=== PATIENT | male | born 1935 | race Caucasian/White ===

== ENCOUNTER 2020-10-09 11:20 | Outpatient (CLI) | payer OTHER, MEDICARE ==
--- NOTE | 2020-10-09 16:07 | XRAY Report ---
PROCEDURE: Lumbar Spine 2 View INDICATIONS: LOW BACK PAIN TECHNIQUE: 2 views of the lumbar spine were acquired. COMPARISON: None. FINDINGS: Bones: 5 zrw-bli-cdeayoc vertebrae are present. There is diffuse osteopenia present. Multilevel ret rolisthesis is present. Multilevel moderate to severe disc space narrowing is present. Severe foramin al narrowing is present at L5-S1. Compression deformity is present at L4 of indeterminate age. No zellaem ors are available for comparison. Multilevel osteophytes are present. No vertebral body compression f ractures. No suspicious bony lesions. Soft tissues: Overlying bowel gas pattern is normal. No suspicious soft tissue calcifications. IMPRESSION: 1. Osteopenia and multilevel degenerative change. 2. Compression deformity at L4 of indeterminate age. If concern persists, CT or MRI is recommended. Reviewed by: Megan Nunez MD on 10/09/2020 4:05 PM PDT Approved by: Megan Nunez MD on 10/09/2020 4:05 PM PDT Station ID: [id number]
== END 2020-10-09 11:21 | disposition home or self-care (01) ==
LOC: DI.S 11:20
PROVIDERS: ATTEND Physician Assistant
DX: M85.88 Other specified disorders of bone density and structure, other site (principal); M43.16 Spondylolisthesis, lumbar region; M48.07 Spinal stenosis, lumbosacral region; M25.78 Osteophyte, vertebrae

== ENCOUNTER 2021-03-09 14:02 | Outpatient (CLI) | payer MEDICARE, OTHER | END 2021-03-09 14:03 | disposition critical access hospital (66) | LOC: EMS 14:02 | DX: S80.211A Abrasion, right knee, initial encounter (principal); S00.83XA Contusion of other part of head, initial encounter; M25.511 Pain in right shoulder; W01.0XXA Fall on same level from slipping, tripping and stumbling without subsequent striking against object, initial encounter; Y93.K1 Activity, walking an animal; Y92.199 Unspecified place in other specified residential institution as the place of occurrence of the external cause | CPT/HCPCS: A0425; A0429 ==

== ENCOUNTER 2021-03-09 14:27 | Emergency (ER) | payer MEDICARE, OTHER ==
--- NOTE | 2021-03-09 15:35 | XRAY Report ---
PROCEDURE: Chest 1 View X-Ray INDICATIONS: chest pain TECHNIQUE: One view of the chest was acquired. COMPARISON: None. FINDINGS: Surgical changes and devices: There is a cardiac pacemaker. Sternotomy and CABG. Lungs and pleura: Right hemidiaphragm elevation and bibasilar atelectasis. No pleural effusions or p neumothorax. Mediastinum: Mediastinal contours appear normal. Heart size is mildly increased. Bones and chest wall: No suspicious bony lesions. Overlying soft tissues appear unremarkable. IMPRESSION: 1. Mild cardiomegaly. 2. Right hemidiaphragm elevation. Reviewed by: Lukasz Ulloa MD on 03/09/2021 3:34 PM PST Approved by: Lukasz Ulloa MD on 03/09/2021 3:34 PM PST Station ID: [id number]
--- NOTE | 2021-03-09 15:39 | ED Physician Documentation ---
History of Present Illness - Stated complaint Stated Complaint: GLF - Chief complaint Chief Complaint: Trauma Hd/Nk - Additonal information Additional information: This is a very pleasant 85-year-old male that comes to the ER as a modified t rauma. He was walking his dog and had a ground-level fall. He does reside at an assisted living facility as he has a history of dementia. He is also anticoagulated. He does not think he lost consciousness. He reports that he has some mild pain in his knee and right shoulder. History is somewhat limited given the history of dementia. Review of Systems Constitutional: denies: Fever, Chills Eyes: reports: Reviewed and negative Throat: reports: Reviewed and negative Cardiac: reports: Reviewed and negative Skin: reports: Abrasion (s) Musculoskeletal: reports: Joint pain Neurologic: denies: Syncope, Seizure, Headache, Head injury, LOC PD PAST MEDICAL HISTORY - Past Medical History Past Medical History: Yes Neuro: Alzhiemer's, Dementia, CVA - Past Surgical History Past Surgical History: Yes Cardiovascular: Pacemaker HEENT: Cataracts - Allergies Allergies/Adverse Reactions: Allergies Allergy/AdvReac Type Severity Reaction Status Date / Time lisinopril Allergy Unknown Verified 03/09/21 14:42 - Social History Does the pt smoke?: No Smoking Status: Never smoker Does the pt drink ETOH?: No Does the pt have substance abuse?: No - Immunizations Immunizations are current?: Yes - POLST Patient has POLST: No PD ED PE EXPANDED - General General: Alert, No acute distress, Well developed/nourished - HEENT HEENT: Atraumatic, PERRL, EOMI - Neck Neck: Supple w/out meningeal sx, Soft tissue TTP. No: Adenopathy, Bony TTP, Limited ROM - Cardiac Cardiac: Regular Rate, Radial strong equal, Pedal strong equal, Cap refill < 2 sec - Respiratory Respiratory: Clear to ausultation jason. No: Distress, Labored - Abdomen Abdomen: Normal Bowel sounds. No: Tender to palpation - Back Back: No: Vertebral tenderness, Soft tissue tenderness - Derm Derm: Abrasion (s) (Right knee) - Extremities Extremities: Normal, Tenderness, Right shoulder (Full range of motion of the right shoulder in all planes. Some mild tenderness exhibited posteriorly. No swelling ecchymosis or deformity. Distal radial pulse 2+.), Right knee (Superficial abrasion on the patella of the right knee. Normal flexion extension. No tenderness exhibited medial or lateral joint lines. No laxity. Able to bear weight.). No: Deformity - Neuro Neuro: Confused, CNII-XII intact - GCS Eye Opening: Spontaneous Motor: Obeys Commands Verbal: Confused Total: 14 Results - Vitals Vitals: Vital Signs - 24 hr 03/09/21 14:30 Temperature 33.7 C L Heart Rate 76 Respiratory 21 Rate Blood Pressure 136/82 H O2 Saturation 100 Oxygen O2 Source Room air - Rads (name of study) CXR Radiology: Final report received (Mild cardiomegaly. Right hemidiaphragm elevation.) CT head Radiology: Final report received (No acute intracranial process) Cervical CT Radiology: Final report received (No acute fracture or dislocation) Right shoulder Radiology: Final report received (Slightly displaced acute right distal clavicular fracture. No dislocation. Moderate shoulder joint osteoarthritis) Right knee Radiology: Final report received (No definite acute right knee fracture dislocation. Radiolucency involving the medial peripheral of patella seen on patellar view suggest subcortical cyst versus subtle incomplete fracture) PD MEDICAL DECISION MAKING - ED course Complexity details: reviewed results, re-evaluated patient, considered differential, d/w patient ED course: This is a very pleasant 85-year-old male who has slight dementia presents to the emergency department after a ground-level fall in which he tripped while walking his dog. He is anticoagulated on Xarelto. He did not lose consciousness. He did present as a modified trauma CT of the head and neck are without acute findings. He did report pain in the right shoulder but had a fairly normal shoulder exam as well as full movement of the joint. The x-ray shows a distal mildly displaced clavicular fracture. This finding was discussed with the patient and his daughter. Given that he has very little pain in this area and he moves it well we did not give him a shoulder sling as we do want to prevent a frozen joint. The x-ray of his knees suggests a radiolucency involving the medial periphery of the patella. However he has no pain here and he ambulates without assistance or pain in the knee therefore defer further imaging as my suspicion for a subtle incomplete fracture is felt to be less likely. Patient will be discharged with advised to take Tylenol for discomfort. Follow- up with his primary care provider. Emergent return precautions were otherwise discussed Departure - Departure Disposition: 01 Home, Self Care Clinical Impression: Fall from ground level, Anticoagulated, Abrasion, right knee, initial encounter Closed right clavicular fracture Qualifiers: Encounter type: initial encounter Clavicle location: lateral end Fracture alignment: displaced Qualified Code(s): S42.031A - Displaced fracture of lateral end of right clavicle, initial encounter for closed fracture Condition: Stable Record reviewed to determine appropriate education?: Yes Instructions: ED Fx Clavicle Ch, ED Sprain Knee Follow-Up: ADALID ANGELO PA [Primary Care Provider] - Comments: Tello was seen in the emergency department after ground-level fall this afternoon. The CT of his head and neck showed no broken bones or bleeding. He does have a slightly displaced right clavicle fracture at the joint where it meets the shoulder. However he is moving his shoulder normally. Typically most clavicle fractures are simply monitored and heal over time. We do not want to give him a frozen shoulder therefore we have not given him a sling. I would like him to take ibuprofen 500 mg with food 3-4 times a day for any discomfort. Icing his shoulder may also be helpful. He has an abrasion over his patella. However he is walking normally. The x-ray of his knee suggest that he may have a cyst near the patella. A definitive fracture was not ruled out but given that he is walking so well it is felt to be very unlikely at this time. If at any point over the next few days he has sudden severe headache, uncontro lled vomiting, fevers or chest pain he is to return immediately to the ER for a second evaluation
--- NOTE | 2021-03-09 15:42 | CT Report ---
PROCEDURE: HEAD WO INDICATIONS: GLF TECHNIQUE: Noncontrast 4.5 mm thick angled axial sections acquired from the foramen magnum to the vertex. For r adiation dose reduction, the following was used: automated exposure control, adjustment of mA and/or kV according to patient size. COMPARISON: None. FINDINGS: Image quality: Excellent. CSF spaces: Cavum septum pellucidum. Basal cisterns are patent. No extra-axial fluid collections. Ventricles are normal in size and shape. Brain: No midline shift. No intracranial masses or hemorrhage. Moderate cerebral volume loss and pe riventricular white matter chronic small vessel ischemic changes. Intracranial carotid artery and ve rtebral artery calcifications. Skull and face: Calvarium and visualized facial bones are intact, without suspicious lesions. Sinuses: Visualized sinuses and mastoids are clear. IMPRESSION: No acute intracranial disease. No intracranial bleed. No skull fractures. Reviewed by: Lukasz Ulloa MD on 03/09/2021 3:41 PM PST Approved by: Lukasz Ulloa MD on 03/09/2021 3:41 PM PST Station ID: [id number]
--- NOTE | 2021-03-09 15:44 | XRAY Report ---
PROCEDURE: Shoulder 3 View RT INDICATIONS: pain after fall TECHNIQUE: 3 views of the shoulder were acquired. COMPARISON: None. FINDINGS: Bones: Acute oblique fracture through distal clavicle near acromioclavicular joint is seen with sligh t superior displacement and minimal overlapping of fracture site. No other fracture or dislocation is seen. No suspicious bony lesions. Moderate acromioclavicular joint and glenohumeral joint osteoarthr itic changes are seen. Visualized ribs appear intact. Soft tissues: No suspicious soft tissue calcifications. IMPRESSION: Slightly displaced acute right distal clavicular fracture as above. No dislocation. Mode rate shoulder joint osteoarthritis. Reviewed by: Frank Galvan MD on 03/09/2021 3:43 PM PST Approved by: Frank Galvan MD on 03/09/2021 3:43 PM PST Station ID: [id number]
--- NOTE | 2021-03-09 15:45 | CT Report ---
PROCEDURE: CERVICAL SPINE WO INDICATIONS: GLF TECHNIQUE: Noncontrast 3 mm thick sections acquired from the skull base to the T4 level. Sagittal and coronal r eformats were then constructed. For radiation dose reduction, the following was used: automated exp osure control, adjustment of mA and/or kV according to patient size. COMPARISON: None. FINDINGS: Image quality: Excellent. Bones: No fractures or dislocations. Degenerative disc and facet disease in cervical spine. There i s severe atlantoaxial joint degeneration. Visualized superior ribs are intact. Soft tissues: Prevertebral soft tissues are normal in thickness. No paravertebral hematomas. No ap ical pneumothoraces. Density calcified plaques at the carotid bifurcations bilaterally. IMPRESSION: No cervical spine fracture. Reviewed by: Lukasz Ulloa MD on 03/09/2021 3:44 PM PST Approved by: Lukasz Ulloa MD on 03/09/2021 3:44 PM PST Station ID: [id number]
--- NOTE | 2021-03-09 15:52 | XRAY Report ---
PROCEDURE: Knee 3 View RT INDICATIONS: fall, [pain TECHNIQUE: 3 views of the right knee(s) were acquired. COMPARISON: None. FINDINGS: Bones: No definite acute fractures or dislocations. Radiolucency involving medial periphery of poste rior patella is seen which may represent a subcortical cyst. Incomplete fracture in this area cannot be entirely excluded. No suspicious bony lesions. Mild to moderate tricompartmental osteoarthritis i s seen more prominent in medial femoral tibial compartment. Soft tissues: No joint effusion. No suspicious soft tissue calcifications. IMPRESSION: No definite acute right knee fracture or dislocation. Radiolucency involving medial jamir phery of patella seen on patellar view suggestive of subcortical cyst versus subtle incomplete fractu re in this area. Clinical correlation for focal pain in this region is recommended. No significant estelita int effusion. Mild to moderate tricompartmental osteoarthritis more prominent in medial femoral tibia l compartment. Reviewed by: Frank Galvan MD on 03/09/2021 3:51 PM PST Approved by: Frank Galvan MD on 03/09/2021 3:51 PM PST Station ID: [id number]
[2021-03-09 16:56] VITALS: BP 145/87
== END 2021-03-09 17:02 | disposition home or self-care (01) ==
LOC: EDUNIT# → ED 14:27
DX: S42.031A Displaced fracture of lateral end of right clavicle, initial encounter for closed fracture (principal); S80.211A Abrasion, right knee, initial encounter; W01.0XXA Fall on same level from slipping, tripping and stumbling without subsequent striking against object, initial encounter; Y93.K1 Activity, walking an animal; Y92.099 Unspecified place in other non-institutional residence as the place of occurrence of the external cause; M19.011 Primary osteoarthritis, right shoulder; M50.30 Other cervical disc degeneration, unspecified cervical region; G30.9 Alzheimer's disease, unspecified; F02.80 Dementia in other diseases classified elsewhere, unspecified severity, without behavioral disturbance, psychotic disturbance, mood disturbance, and anxiety; Z86.73 Personal history of transient ischemic attack (TIA), and cerebral infarction without residual deficits; Z79.01 Long term (current) use of anticoagulants
CPT/HCPCS: 36415; 99283; 99284

== ENCOUNTER 2021-04-08 16:57 | Outpatient (CLI) | payer MEDICARE, OTHER | END 2021-04-08 16:58 | disposition critical access hospital (66) | LOC: EMS 16:57 | DX: Z76.89 Persons encountering health services in other specified circumstances (principal) | CPT/HCPCS: A0425; A0427 ==

== ENCOUNTER 2021-04-08 17:24 | Emergency (ER) | payer MEDICARE, OTHER ==
[2021-04-08 18:06] LABS: BASOPHILS % (AUTO) 0.4 %; EOSINOPHILS % (AUTO) 0.1 %; HCT - HEMATOCRIT 41.9 % (42.0-52.0); HGB - HEMOGLOBIN 13.5 g/dL (14.0-18.0); LYMPHOCYTES # (AUTO) 0.7 10^3/uL (1.5-3.5); LYMPHOCYTES % (AUTO) 6.6 %; MEAN CORPUSCULAR HGB CONC 32.2 g/dL (32.0-36.0); MEAN CORPUSCULAR VOLUME 89.9 fL (80.0-94.0); MEAN PLATELET VOLUME 9.2 fL (7.4-11.4); MONOCYTES # (AUTO) 0.8 10^3/uL (0.0-1.0); MONOCYTES % (AUTO) 7.4 %; NEUTROPHILS # (AUTO) 9.1 10^3/uL (1.5-6.6); PLT - PLATELET COUNT 165 10^3/uL (130-450); RED BLOOD COUNT 4.66 10^6/uL (4.70-6.10); RED CELL DISTRIBUTION WIDTH 13.2 % (12.0-15.0); WHITE BLOOD COUNT 10.6 x10^3/uL (4.8-10.8)
--- NOTE | 2021-04-08 18:08 | ED Physician Documentation ---
History of Present Illness - Stated complaint Stated Complaint: FALL/HEAD LAC - Chief complaint Chief Complaint: Trauma Hd/Nk - Additonal information Additional information: 85-year-old male who is a resident of [facility] presents emergency department after ground-level fall. He is reportedly anticoagulated and has a history of atrial fibrillation, atrial flutter, hypertension, hyperlipidemia chronic pain in his left hip. He states that he simply tripped though this was unwitnessed. He is a poor historian given history of dementia. He does present with multiple bruises on his lower extremities. He also has a noted yeast dermatitis under his right breast. He does not appear amnesia to the events. He is denying pain, leg pain, hip pain or chest pain. Review of Systems Constitutional: denies: Fever, Chills Eyes: reports: Reviewed and negative Ears: reports: Reviewed and negative Throat: reports: Reviewed and negative Cardiac: reports: Reviewed and negative Respiratory: reports: Reviewed and negative GI: reports: Reviewed and negative : reports: Reviewed and negative Skin: reports: Rash (Yeast dermatitis under right breast) Musculoskeletal: reports: Reviewed and negative PD PAST MEDICAL HISTORY - Past Medical History Neuro: Alzhiemer's, Dementia, CVA - Past Surgical History Past Surgical History: Yes Cardiovascular: Pacemaker HEENT: Cataracts - Present Medications Home Medications: Ambulatory Orders Medication Instructions Recorded Confirmed Nystatin [Nystop] 1 applic TOP BID #15 gm 04/08/21 - Allergies Allergies/Adverse Reactions: Allergies Allergy/AdvReac Type Severity Reaction Status Date / Time lisinopril Allergy Unknown Verified 04/08/21 17:51 - Social History Does the pt smoke?: No Smoking Status: Never smoker Does the pt drink ETOH?: No Does the pt have substance abuse?: No - Immunizations Immunizations are current?: Yes - POLST Patient has POLST: No PD ED PE NORMAL - General General: No acute distress, Well developed/nourished - HEENT HEENT: Atraumatic, Ears normal, Moist mucous membranes, Pharynx benign - Neck Neck: Supple, no meningeal sign, Thyroid normal, No JVD - Cardiac Cardiac: No: RRR (Atrial flutter with a 3-1 conduction.), No murmur (systolic murmur), No gallop, No rub - Respiratory Respiratory: No respiratory distress, Clear bilaterally - Abdomen Abdomen: Normal bowel sounds, Soft - Back Back: No CVA TTP, No spinal TTP - Derm Derm: Normal color, Warm and dry. No: No rash (Mildly erythematous dermatitis under the right breast with white papular satellite lesions consistent with a yeast dermatitis) - Extremities Extremities: No deformity, No tenderness to palpate, No edema. No: Other (Multiple bruises in various stages of healing on hands and bilateral lower extremities. 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 History dementia. No focal neurodeficits.) Eye Opening: Spontaneous Motor: Obeys Commands Verbal: Oriented GCS Score: 15 Results - Vitals Vitals: Vital Signs - 24 hr 04/08/21 04/08/21 17:44 18:44 Temperature 36.4 C L Heart Rate 57 L 58 L Respiratory 14 17 Rate Blood Pressure 176/85 H O2 Saturation 96 97 Oxygen O2 Source Room air - EKG (time done) 1747 Rate: Rate (enter#) (58) Rhythm: NSR [place]: Normal Intervals: RBBB QRS: Normal Ischemia: Non specific changes Compare to prior EKG: Old EKG unavailable Computer interpretation: Agree with computer - Labs Labs: Laboratory Tests 04/08/21 04/08/21 04/08/21 18:00 18:00 18:00 WBC 10.6 RBC 4.66 L Hgb 13.5 L Hct 41.9 L MCV 89.9 MCH 29.0 MCHC 32.2 RDW 13.2 Plt Count 165 MPV 9.2 Neut # (Auto) 9.1 H Lymph # (Auto) 0.7 L [place] # (Auto) 0.8 Eos # (Auto) 0.0 Baso # (Auto) 0.0 Absolute Nucleated RBC 0.00 Nucleated RBC % 0.0 Sodium 139 Potassium 3.9 Chloride 103 Carbon Dioxide 26 Anion Gap 10.0 BUN 20 Creatinine 1.3 H Estimated GFR (MDRD) 52 L Glucose 101 H Calcium 9.6 Total Bilirubin 1.2 H AST 27 ALT 16 Alkaline Phosphatase 105 Troponin I High Sens 24.7 H* Total Protein 7.3 Albumin 3.9 Globulin 3.4 Albumin/Globulin Ratio 1.1 Lipase 43 04/08/21 19:45 WBC RBC Hgb Hct MCV MCH MCHC RDW Plt Count MPV Neut # (Auto) Lymph # (Auto) [place] # (Auto) Eos # (Auto) Baso # (Auto) Absolute Nucleated RBC Nucleated RBC % Sodium Potassium Chloride Carbon Dioxide Anion Gap BUN Creatinine Estimated GFR (MDRD) Glucose Calcium Total Bilirubin AST ALT Alkaline Phosphatase Troponin I High Sens 31.6 H* Total Protein Albumin Globulin Albumin/Globulin Ratio Lipase - Rads (name of study) CXR Radiology: Final report received (No acute cardiopulmonary process.) CT head Radiology: Final report received (No acute intracranial disease process.) Cervical CT Radiology: Final report received (No fracture. No acute osseous lesion.) PD MEDICAL DECISION MAKING - ED course Complexity details: reviewed results, re-evaluated patient, considered differential, d/w patient ED course: 85-year-old male who presents from [place] comes after a ground-level fall that was unwitnessed this afternoon. He is not amnesic to the events and is reportedly anticoagulated though I do not see an anticoagulation medication on his meds. Screening chest x-ray, CT of the head and CT of the neck were negative for acute findings. Patient was able to ambulate at the bedside and road tested well. Because this was an unwitnessed fall and EKG was completed. He does have a right bundle branch block. There is no previous for comparison. He is noted in his medical history to have a history of atrial flutter with a 3-1 conduction. He was seen to be in this today while in the ER. His initial troponin was 25. On repeat it was 31.6. Essentially flat or static. Patient is denying chest pain. I suspect a mild troponin leak secondary to the atrial flutter with a 3:1 conduction He is noted to have a yeast dermatitis. A prescription for nystatin powder was prescribed. At this time he is stable for discharge home I will encourage him to call to follow-up with his primary care provider. Emergent return precautions were discussed Departure - Departure Disposition: Home, Self Care Clinical Impression: Right bundle branch block (RBBB), Yeast dermatitis Fall Qualifiers: Encounter type: initial encounter Qualified Code(s): W19.XXXA - Unspecified fall, initial encounter Dementia Qualifiers: Dementia type: unspecified type Dementia behavioral disturbance: without behavioral disturbance Qualified Code(s): F03.90 - Unspecified dementia without behavioral disturbance Condition: Stable Record reviewed to determine appropriate education?: Yes Prescriptions: Nystatin [Nystop] 1 applic TOP BID #15 gm Comments: Tello barnes were seen in the emergency department after you had a fall at [facility]. The CT of your head and neck did not show any bruising or bleeding in the brain. There are no fractures. Your chest x-ray was normal. Your EKG shows a right bundle branch block. We have never obtained an EKG on you before and there is no previous for comparison. Your troponin today was 25 and on repeat it was 31. Though this is mildly elevated this is most likely due to your history of atrial flutter. I recommend that you discuss this ED visit closely with your primary care doctor. You should be referred or reevaluated by a cane flume watcher. You do have a yeast infection on your chest under your right breast. Please fill the prescription for the nystatin powder and apply to it twice daily.
[2021-04-08 18:20] LABS: ALBUMIN 3.9 g/dL (3.2-5.5); ALBUMIN/GLOBULIN RATIO 1.1 (1.0-2.2); BILIRUBIN,TOTAL 1.2 mg/dL (0.2-1.0); CALCIUM 9.6 mg/dL (8.5-10.3); CREATININE 1.3 mg/dL (0.6-1.2); POTASSIUM 3.9 mmol/L (3.5-5.0); TOTAL PROTEIN 7.3 g/dL (6.7-8.2)
--- NOTE | 2021-04-08 18:24 | CT Report ---
PROCEDURE: HEAD WO INDICATIONS: blood thinner; fall TECHNIQUE: Noncontrast 4.5 mm thick angled axial sections acquired from the foramen magnum to the vertex. For r adiation dose reduction, the following was used: automated exposure control, adjustment of mA and/or kV according to patient size. COMPARISON: 03/09/2021 FINDINGS: Image quality: Excellent. CSF spaces: Basal cisterns are patent. No extra-axial fluid collections. The ventricles are symmet zeynep in size and shape. Brain: No intracranial bleeds or masses. There is cerebral volume loss for age, with resultant vent ricular and sulcal prominence. There are periventricular and deep white matter chronic small vessel ischemic changes. There is intracranial internal carotid artery and vertebral artery atherosclerosis . Skull and face: Calvarium and visualized facial bones appear intact, without suspicious lesions. Sinuses: Visualized sinuses and mastoids are clear. IMPRESSION: No acute intracranial disease process. Reviewed by: Mary Bailey MD, PhD on 04/08/2021 5:22 PM [facility] Approved by: Mary Bailey MD, PhD on 04/08/2021 5:22 PM [facility] Station ID: [id number]
--- NOTE | 2021-04-08 18:29 | CT Report ---
PROCEDURE: CERVICAL SPINE WO INDICATIONS: fall, blood thinner TECHNIQUE: Noncontrast 3 mm thick sections acquired from the skull base to the T4 level. Sagittal and coronal r eformats were then constructed. For radiation dose reduction, the following was used: automated exp osure control, adjustment of mA and/or kV according to patient size. COMPARISON: 03/09/2021.. FINDINGS: Image quality: Excellent. Bones: No fractures or dislocations. Partially visualized median sternotomy wires. Visualized superi or ribs are intact. Spine degenerative disc disease and facet arthropathy are noted. Soft tissues: Prevertebral soft tissues are normal in thickness. No paravertebral hematomas. Hetero topic calcification noted in the posterior paraspinous soft tissues. No apical pneumothoraces. Cardia c pacer leads incidentally noted. IMPRESSION: No fracture. No acute osseous lesion. If there is continued clinical concern for pathology, then MRI should be considered for further evaluation. Reviewed by: Mary Bailey MD, PhD on 04/08/2021 5:28 PM [facility] Approved by: Mary Bailey MD, PhD on 04/08/2021 5:28 PM [facility] Station ID: [id number]
--- NOTE | 2021-04-08 18:31 | XRAY Report ---
PROCEDURE: Chest 1 View X-Ray INDICATIONS: chest pain TECHNIQUE: One view of the chest was acquired. COMPARISON: 03/09/2021. FINDINGS: Surgical changes and devices: Status post CABG procedure. Left chest wall cardiac pacer is stable. Lungs and pleura: No pleural effusions or pneumothorax. Lungs are clear. Elevated right hemidiaphra gm is stable. Mediastinum: Mediastinal contours appear normal. Heart size is normal. Bones and chest wall: No suspicious bony lesions. Overlying soft tissues appear unremarkable. IMPRESSION: No acute cardiopulmonary disease process. Reviewed by: Mary Bailey MD, PhD on 04/08/2021 5:29 PM [facility] Approved by: Mary Bailey MD, PhD on 04/08/2021 5:29 PM [facility] Station ID: [id number]
[2021-04-08 18:53] VITALS: BP 176/85
== END 2021-04-08 22:00 | disposition home or self-care (01) ==
LOC: EDUNIT# → ED 17:24
DX: S80.12XA Contusion of left lower leg, initial encounter (principal); S80.11XA Contusion of right lower leg, initial encounter; S60.222A Contusion of left hand, initial encounter; S60.221A Contusion of right hand, initial encounter; W01.0XXA Fall on same level from slipping, tripping and stumbling without subsequent striking against object, initial encounter; Y92.129 Unspecified place in nursing home as the place of occurrence of the external cause; I45.10 Unspecified right bundle-branch block; I48.92 Unspecified atrial flutter; L30.8 Other specified dermatitis; B37.2 Candidiasis of skin and nail; M50.30 Other cervical disc degeneration, unspecified cervical region; I10 Essential (primary) hypertension; G30.9 Alzheimer's disease, unspecified; F02.80 Dementia in other diseases classified elsewhere, unspecified severity, without behavioral disturbance, psychotic disturbance, mood disturbance, and anxiety
CPT/HCPCS: 36415; 80053; 83690; 84484; 85025; 93005; 99283; 99284

== ENCOUNTER 2021-04-08 21:58 | Outpatient (CLI) | payer MEDICARE, OTHER | END 2021-04-08 21:59 | disposition home or self-care (01) | LOC: EMS 21:58 | PROVIDERS: ATTEND Registered Nurse | DX: Z74.01 Bed confinement status (principal) | CPT/HCPCS: A0425; A0428 ==

== ENCOUNTER 2021-07-11 13:07 | Outpatient (CLI) | payer MEDICARE, OTHER | END 2021-07-11 13:08 | disposition critical access hospital (66) | LOC: EMS 13:07 | DX: R31.0 Gross hematuria (principal); Z79.01 Long term (current) use of anticoagulants | CPT/HCPCS: A0425; A0429 ==

== ENCOUNTER 2021-07-11 13:22 | Emergency (ER) | payer MEDICARE, OTHER ==
[2021-07-11 14:01] LABS: BASOPHILS # (AUTO) 0.1 10^3/uL (0.0-0.1); BASOPHILS % (AUTO) 0.8 %; EOSINOPHILS # (AUTO) 0.1 10^3/uL (0.0-0.7); EOSINOPHILS % (AUTO) 1.7 %; HCT - HEMATOCRIT 41.8 % (42.0-52.0); HGB - HEMOGLOBIN 13.3 g/dL (14.0-18.0); LYMPHOCYTES # (AUTO) 1.5 10^3/uL (1.5-3.5); LYMPHOCYTES % (AUTO) 23.2 %; MEAN CORPUSCULAR HEMOGLOBIN 26.9 pg (27.0-31.0); MEAN CORPUSCULAR HGB CONC 31.8 g/dL (32.0-36.0); MEAN CORPUSCULAR VOLUME 84.6 fL (80.0-94.0); MEAN PLATELET VOLUME 10.1 fL (7.4-11.4); MONOCYTES # (AUTO) 0.5 10^3/uL (0.0-1.0); NEUTROPHILS # (AUTO) 4.2 10^3/uL (1.5-6.6); PLT - PLATELET COUNT 170 10^3/uL (130-450); RED BLOOD COUNT 4.94 10^6/uL (4.70-6.10); RED CELL DISTRIBUTION WIDTH 14.5 % (12.0-15.0); WHITE BLOOD COUNT 6.4 x10^3/uL (4.8-10.8)
[2021-07-11 14:07] LABS: INR 1.6 (0.8-1.2); PT - PROTHROMBIN TIME 18.3 secs (9.9-12.6)
[2021-07-11 14:15] LABS: PARTIAL THROMBOPLASTIN TIME 35.2 secs (24.9-33.3)
[2021-07-11 14:21] LABS: ALBUMIN 3.8 g/dL (3.2-5.5); ALBUMIN/GLOBULIN RATIO 1.1 (1.0-2.2); BILIRUBIN,TOTAL 0.8 mg/dL (0.2-1.0); CALCIUM 9.7 mg/dL (8.5-10.3); POTASSIUM 4.3 mmol/L (3.5-5.0); TOTAL PROTEIN 7.3 g/dL (6.7-8.2)
[2021-07-11 14:27] LABS: CREATININE 1.5 mg/dL (0.6-1.2)
--- NOTE | 2021-07-11 14:33 | ED Physician Documentation ---
PD HPI MALE - Stated complaint Stated Complaint: - Chief complaint Chief Complaint: UTI - History obtained from History obtained from: Patient, EMS (The patient reportedly has had hematuria yesterday and today. No abdominal pain noted. No fever. Sent here for evaluation.), Caregiver - History of Present Illness Timing - onset: Today, Yesterday Timing - duration: Days (2) Timing - details: Intermittant Associated symptoms: Unable to urinate, Hematuria PD HPI MALE CONTRIB FACTORS: Not sexually active Similar symptoms before: Has not had sx before Recently seen: Not recently seen Review of Systems Unable to obtain: Dementia, Other (info through caregivers/EMS) Constitutional: denies: Fever GI: denies: Abdominal Pain, Vomiting PD PAST MEDICAL HISTORY - Past Medical History Past Medical History: Yes Cardiovascular: None Respiratory: Asthma Neuro: Alzhiemer's, Dementia, CVA HEENT: None - Past Surgical History Past Surgical History: Yes Cardiovascular: Pacemaker HEENT: Cataracts - Present Medications Home Medications: Ambulatory Orders Medication Instructions Recorded Confirmed Nystatin [Nystop] 1 applic TOP BID #15 gm 04/08/21 Candesartan Cilexetil 8 mg PO DAILY 07/11/21 07/11/21 Donepezil HCl [Aricept] 10 mg PO DAILY 07/11/21 07/11/21 Finasteride [Proscar] 5 mg PO DAILY 07/11/21 07/11/21 Metoprolol Tartrate [Lopressor] 25 mg PO DAILY 07/11/21 07/11/21 Nitroglycerin [Nitrostat] 0.4 mg SL PRN 07/11/21 Pravastatin Sodium 20 mg PO DAILY 07/11/21 07/11/21 Rivaroxaban [Xarelto] 20 mg PO DAILY 07/11/21 07/11/21 Sertraline [Zoloft] 25 mg PO DAILY 07/11/21 07/11/21 - Allergies Allergies/Adverse Reactions: Allergies Allergy/AdvReac Type Severity Reaction Status Date / Time lisinopril Allergy Unknown Verified 07/11/21 13:33 - Social History Does the pt smoke?: No Smoking Status: Never smoker Does the pt drink ETOH?: No Does the pt have substance abuse?: No - Immunizations Immunizations are current?: Yes - POLST Patient has POLST: No PD ED PE NORMAL - Vitals Vital signs reviewed: Yes - General General: Alert and oriented X 3, Well developed/nourished - Abdomen Abdomen: Normal bowel sounds, Soft, Non tender, Non distended (Lower abdomen does not feel distended.), No organomegaly - Male Male : Other (External genitalia without any sores or lesions. No scrotal swelling or tenderness. The penile meatus shows some hypospadias but normal urethral opening size. No blood.) - Back Back: No CVA TTP - Derm Derm: Normal color, Warm and dry Results - Vitals Vitals: Vital Signs - 24 hr 07/11/21 13:33 Temperature 36.5 C Heart Rate 87 Respiratory 16 Rate Blood Pressure 126/67 O2 Saturation 100 Oxygen O2 Source Room air - Labs Labs: Laboratory Tests 07/11/21 07/11/21 07/11/21 13:54 13:54 13:54 WBC 6.4 RBC 4.94 Hgb 13.3 L Hct 41.8 L MCV 84.6 MCH 26.9 L MCHC 31.8 L RDW 14.5 Plt Count 170 MPV 10.1 Neut # (Auto) 4.2 Lymph # (Auto) 1.5 [place] # (Auto) 0.5 Eos # (Auto) 0.1 Baso # (Auto) 0.1 Absolute Nucleated RBC 0.00 Nucleated RBC % 0.0 PT 18.3 H INR 1.6 H APTT 35.2 H Sodium 141 Potassium 4.3 Chloride 102 Carbon Dioxide 27 Anion Gap 12.0 BUN 17 Creatinine 1.5 H Estimated GFR (MDRD) 44 L Glucose 131 H Calcium 9.7 Total Bilirubin 0.8 AST 28 ALT 21 Alkaline Phosphatase 78 Total Protein 7.3 Albumin 3.8 Globulin 3.5 Albumin/Globulin Ratio 1.1 Lipase 69 H Urine Color Urine Clarity Urine pH Ur Specific [place] Urine Protein Urine Glucose (UA) Urine Ketones Urine Occult Blood Urine Nitrite Urine Bilirubin Urine Urobilinogen Ur Leukocyte Esterase Urine RBC Urine WBC Ur Squamous Epith Cells Urine Bacteria Ur Microscopic Review Urine Culture Comments 07/11/21 14:50 WBC RBC Hgb Hct MCV MCH MCHC RDW Plt Count MPV Neut # (Auto) Lymph # (Auto) [place] # (Auto) Eos # (Auto) Baso # (Auto) Absolute Nucleated RBC Nucleated RBC % PT INR APTT Sodium Potassium Chloride Carbon Dioxide Anion Gap BUN Creatinine Estimated GFR (MDRD) Glucose Calcium Total Bilirubin AST ALT Alkaline Phosphatase Total Protein Albumin Globulin Albumin/Globulin Ratio Lipase Urine Color RED/BLOODY Urine Clarity BLOODY Urine pH 6.0 Ur Specific [place] 1.020 Urine Protein 100 H Urine Glucose (UA) NEGATIVE Urine Ketones NEGATIVE Urine Occult Blood LARGE H Urine Nitrite NEGATIVE Urine Bilirubin NEGATIVE Urine Urobilinogen 0.2 (NORMAL) Ur Leukocyte Esterase NEGATIVE Urine RBC TNTC H Urine WBC 4-5 Ur Squamous Epith Cells NONE SEEN Urine Bacteria None Seen Ur Microscopic Review INDICATED Urine Culture Comments NOT INDICATED - Rads (name of study) CT IVP Radiology: Prelim report reviewed (Stones in both proximal ureters with mild hydronephrosis. There is urine flow so nonobstructing stones. Stone in the bladder as well 14 mm.), See rad report PD MEDICAL DECISION MAKING - ED course Complexity details: reviewed results, re-evaluated patient (You really had minimal blood in the urine here and no clots. He is voiding so no obstruction. Blood count is good. No signs of urinary infection.), considered differential (Commonly incontinent with report of hematuria and concern for retention. The bladder does not feel full. Can check bladder scanner but otherwise will likely need to do in and out catheter for obtaining a sample for infection. This will assess retained volume. We can leave it in if its large amou), d/w patient, d/w family (I talked with his daughter who is his power of attorney at law and reviewed the findings with her. She currently is at her daughter's wedding in [place] but will be back in a few days. She will follow-up with urology if persistent bleeding. 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 Departure - Departure Disposition: 01 Home, Self Care Clinical Impression: Hematuria, Bladder calculi, Ureterolithiasis Follow-Up: Stephanie Gu MD [Provider Admit Priv/Credential] - WOODY CASTILLO ARNP [Primary Care Provider] - Comments: You do have stones in both ureters and also 1 in the bladder. These may be irritating the bladder wall and causing the bleeding. Right now there does not seem to be significant amount of bleeding and it is not causing a blockage of the outflow of the urine. If persistent bleeding or problems, you could follow-up with the urology to see if they would want to retrieve or extricate the stones. I provided the name of one of the urologists in [place]. You could be any of that group for follow-up. I did talk with your daughter about the findings and she will follow-up with [facility] and your primary care about this.
[2021-07-11 15:09] LABS: BILIRUBIN,URINE NEGATIVE (NEGATIVE); GLUCOSE, URINE (UA) NEGATIVE (NEGATIVE); KETONES,URINE (UA) NEGATIVE (NEGATIVE); LEUKOCYTE ESTERASE, URINE NEGATIVE (NEGATIVE); NITRITE,URINE NEGATIVE (NEGATIVE); OCCULT BLOOD,URINE LARGE (NEGATIVE); PROTEIN,URINE 100 mg/dL (NEGATIVE); UROBILINOGEN,URINE 0.2 (NORMAL) E.U./dL (NORMAL)
[2021-07-11 15:12] LABS: CLARITY,URINE BLOODY (CLEAR); RBC,URINE TNTC /HPF (0-5); SQUAMOUS EPITHELIAL CELL,UR NONE SEEN (<= Few)
[2021-07-11 15:13] LABS: BACTERIA,URINE None Seen /HPF (None Seen)
[2021-07-11] MEDS ORDERED: IOVERSOL 320 50 ML VIAL ONE (15:38)
[2021-07-11] MEDS ORDERED: IOVERSOL 320 50 ML VIAL IVP ONE (15:46)
--- NOTE | 2021-07-11 16:32 | CT Report ---
PROCEDURE: CT IVP INDICATIONS: hematuria 2 days without UTI CONTRAST: IV CONTRAST: Optiray 320 ml: 140 PO CONTRAST: *NO PO CONTRAST TECHNIQUE: After the administration of oral and intravenous contrast, 5 mm thick sections acquired from the diap hragms to the symphysis. 5 mm thick coronal and sagittal reformats were acquired. For radiation dos e reduction, the following was used: automated exposure control, adjustment of mA and/or kV accordin g to patient size. COMPARISON: None. FINDINGS: Lower thorax: Heart size is enlarged. Pacer wires present. Midline sternal wires noted. Dense coronar y artery vascular calcification present Liver: Normal in size and attenuation. No contour deformity present. Biliary system: Cholelithiasis without CT evidence of acute cholecystitis. Pancreas: Unremarkable without mass or inflammation evident. Spleen: Normal in size and density. Adrenals: Normal morphology and density. Reproductive system: Prostate is enlarged, elevating the bladder floor. Urinary system: 1.1 x 0.7 cm calculus in the left proximal ureter results in moderate left-sided hydr onephrosis. Additional 6 mm calculus proximal right ureter results in mild to moderate right hydronep hrosis. No additional renal calculi. There is a 1.4 x 1.0 cm bladder calculus present. Small focus of air within the bladder probably reflects recent instrumentation. Small left bladder diverticulum hemalatha sures 1 cm Gastrointestinal system: The bowel appears unremarkable with no evidence of bowel obstruction or inf lammation. The stomach appears unremarkable. Appendix: No findings to suggest acute appendicitis. Peritoneal spaces: No mesenteric or retroperitoneal adenopathy. No free air. No free fluid. Vasculature: Dense aortic atherosclerotic vascular calcification without aneurysm. Musculoskeletal: Normal bone mineralization. No acute fractures. Abdominal wall intact without latisha dence of ventral or inguinal hernias. Multilevel degenerative disc disease and arthropathy present lo wer lumbar spine IMPRESSION: 1. Bilateral proximal ureteral calculi without obstructive uropathy. There is a 6 mm calculus in the proximal right ureter and 11 x 7 mm calculus in the proximal left ureter resulting bilateral hydronep hrosis. Additional 14 mm bladder calculus 2. Dense aortic and coronary artery vascular calcification. 3. Cholelithiasis without CT evidence of acute cholecystitis. Reviewed by: Eddie Torres MD on 07/11/2021 3:31 PM GERTRUDE Approved by: Eddie Torres MD on 07/11/2021 3:31 PM DEYSI Station ID: [id number]
[2021-07-11 18:33] VITALS: BP 133/80
== END 2021-07-11 18:44 | disposition home or self-care (01) ==
LOC: EDUNIT# → ED 13:22
DX: N13.2 Hydronephrosis with renal and ureteral calculous obstruction (principal)
CPT/HCPCS: 36415; 51701; 80053; 81001; 81003; 83690; 85025; 85610; 85730; 87086; 99283; 99284

== ENCOUNTER 2021-11-20 12:21 | Outpatient (CLI) | payer MEDICARE, OTHER | END 2021-11-20 12:22 | disposition critical access hospital (66) | LOC: EMS 12:21 | DX: R41.82 Altered mental status, unspecified (principal); R53.83 Other fatigue; W07.XXXA Fall from chair, initial encounter; Y92.099 Unspecified place in other non-institutional residence as the place of occurrence of the external cause | CPT/HCPCS: A0425; A0429 ==

== ENCOUNTER 2021-11-20 12:37 | Emergency (ER) | payer MEDICARE, OTHER ==
--- NOTE | 2021-11-20 12:57 | ED Physician Documentation ---
History of Present Illness - Stated complaint Stated Complaint: HYPOTENSIVE - Chief complaint Chief Complaint: General - History obtained from History obtained from: Patient, EMS, Caregiver (Ericka Sapp NP) - History of Present Illness Timing: Today Pain level max: 0 Pain level now: 0 - Additonal information Additional information: Patient is an 86-year-old male who was sent over for evaluation from [facility] in [place]. Has a history of dementia. Reportedly has ureteral stents in place. Today has been less responsive than usual. Hypotensive. His primary care provider, Ericka Oviedo NP, Called prior to the patient's arrival and states that normally he is ambulatory and interactive. A Adames catheter was reportedly removed 3 days ago. Review of Systems Unable to obtain: Dementia PD PAST MEDICAL HISTORY - Past Medical History Cardiovascular: None Respiratory: Asthma Neuro: Alzhiemer's, Dementia, CVA HEENT: None - Past Surgical History Past Surgical History: Yes Cardiovascular: Pacemaker HEENT: Cataracts - Present Medications Home Medications: Ambulatory Orders Medication Instructions Recorded Confirmed Nystatin [Nystop] 1 applic TOP BID #15 gm 04/08/21 Candesartan Cilexetil 8 mg PO DAILY 07/11/21 07/11/21 Donepezil HCl [Aricept] 10 mg PO DAILY 07/11/21 07/11/21 Finasteride [Proscar] 5 mg PO DAILY 07/11/21 07/11/21 Metoprolol Tartrate [Lopressor] 25 mg PO DAILY 07/11/21 07/11/21 Nitroglycerin [Nitrostat] 0.4 mg SL PRN 07/11/21 Pravastatin Sodium 20 mg PO DAILY 07/11/21 07/11/21 Rivaroxaban [Xarelto] 20 mg PO DAILY 07/11/21 07/11/21 Sertraline [Zoloft] 25 mg PO DAILY 07/11/21 07/11/21 - Allergies Allergies/Adverse Reactions: Allergies Allergy/AdvReac Type Severity Reaction Status Date / Time lisinopril Allergy Unknown Verified 07/11/21 13:33 - Social History Does the pt smoke?: No Smoking Status: Never smoker Does the pt drink ETOH?: No Does the pt have substance abuse?: No - Immunizations Immunizations are current?: Yes - POLST Patient has POLST: No PD ED PE NORMAL - Vitals Vital signs reviewed: Yes - General General: Alert and oriented X 3 - HEENT HEENT: Moist mucous membranes - Neck Neck: Supple, no meningeal sign - Cardiac Cardiac: RRR, Strong equal pulses - Respiratory Respiratory: No respiratory distress, Clear bilaterally - Abdomen Abdomen: Soft, Other (Palpable bladder to the umbilicus. Does not appear tender) - Derm Derm: Warm and dry - Neuro Neuro: Other (drowsy, nonverbal.) - Psych Psych: Normal mood, Normal affect Results - Vitals Vitals: Vital Signs - 24 hr 11/20/21 11/20/21 12:45 14:50 Temperature 36.8 C Heart Rate 63 85 Respiratory 20 18 Rate Blood Pressure 95/56 L 113/69 O2 Saturation 100 97 Oxygen O2 Source Room air - Labs Labs: Laboratory Tests 11/20/21 11/20/21 11/20/21 12:55 12:55 13:14 WBC 11.5 H RBC 3.38 L Hgb 8.7 L Hct 27.9 L MCV 82.5 MCH 25.7 L MCHC 31.2 L RDW 15.9 H Plt Count 191 MPV 9.4 Neut # (Auto) 8.3 H Lymph # (Auto) 2.0 [place] # (Auto) 1.1 H Eos # (Auto) 0.0 Baso # (Auto) 0.0 Absolute Nucleated RBC 0.00 Nucleated RBC % 0.0 Sodium 136 Potassium 4.2 Chloride 103 Carbon Dioxide 25 Anion Gap 8.0 BUN 47 H Creatinine 2.8 H Estimated GFR (MDRD) 22 L Glucose 120 H Calcium 9.2 Total Bilirubin 1.1 H AST 17 ALT 12 Alkaline Phosphatase 77 Total Protein 7.1 Albumin 3.0 L Globulin 4.1 Albumin/Globulin Ratio 0.7 L Lipase 50 Urine Color YELLOW Urine Clarity CLOUDY Urine pH 6.0 Ur Specific [place] 1.020 Urine Protein 100 H Urine Glucose (UA) NEGATIVE Urine Ketones NEGATIVE Urine Occult Blood MODERATE H Urine Nitrite POSITIVE H Urine Bilirubin NEGATIVE Urine Urobilinogen 0.2 (NORMAL) Ur Leukocyte Esterase LARGE H Urine RBC 6-10 H Urine WBC >25 H Urine WBC Clumps PRESENT Ur Epithelial Cells FEW Renal Tubular Ur Squamous Epith Cells FEW Squamous Urine Bacteria Many H Ur Microscopic Review INDICATED Urine Culture Comments INDICATED SARS-CoV-2 (PCR) 11/20/21 16:36 WBC RBC Hgb Hct MCV MCH MCHC RDW Plt Count MPV Neut # (Auto) Lymph # (Auto) [place] # (Auto) Eos # (Auto) Baso # (Auto) Absolute Nucleated RBC Nucleated RBC % Sodium Potassium Chloride Carbon Dioxide Anion Gap BUN Creatinine Estimated GFR (MDRD) Glucose Calcium Total Bilirubin AST ALT Alkaline Phosphatase Total Protein Albumin Globulin Albumin/Globulin Ratio Lipase Urine Color Urine Clarity Urine pH Ur Specific [place] Urine Protein Urine Glucose (UA) Urine Ketones Urine Occult Blood Urine Nitrite Urine Bilirubin Urine Urobilinogen Ur Leukocyte Esterase Urine RBC Urine WBC Urine WBC Clumps Ur Epithelial Cells Ur Squamous Epith Cells Urine Bacteria Ur Microscopic Review Urine Culture Comments SARS-CoV-2 (PCR) NOT DETECTED - Rads (name of study) CT abd/pelvis Radiology: Final report received, EMP read contemporaneously, See rad report PD MEDICAL DECISION MAKING - ED course Complexity details: reviewed results, re-evaluated patient, considered differential, d/w design and sales consultant ED course: 86-year-old male presents to the emergency department with a UTI, urinary retention and bilateral ureteral stones. Has an elevated white blood cell count. The left ureter appears completely obstructed, the right does appear to be draining urine. I discussed the case with Dr. De La Cruz, Urology at [facility]. The patient reportedly had been there for a ureteral stent about 2 weeks ago, but it was unable to be placed. A Adames catheter was inserted at that time. He recommends transfer for nephrostomy tube and potential ureteral stents. I contacted [facility] again, they have no beds available. [facility] in [place] has no beds. [facility] has no beds. Patient was given IV antibiotics. We will maintain him on IV antibiotics. We will continue to try hospitals down through [place] to look for a bed for this gentleman. Patient will be signed out to the [facility] emergency department physician. This document was made in part using voice recognition software. While efforts are made to proofread this document, sound alike and grammatical errors may occur. ABDOMEN: Lung bases: Atelectasis is present at the right lung base. The heart is enlarged. No pericardial effusion. Solid organs: Liver and spleen are normal in size. Multiple subcentimeter gallstones are layered in the gallbladder fundus. No gallbladder wall thickening or pericholecystic fluid. Pancreas is normal in contours. No adrenal nodules. The right kidney is normal in size. No hydronephrosis or nephrolithiasis. The right ureter demonstrates normal caliber. There is a 9 mm calculus within the distal right ureter which measures 700 Hounsfield units in density. The left kidney is enlarged. There is severe left hydronephrosis and marked left perinephric fat stranding. An obstructive stone is present within the proximal left ureter which measures 1.1 cm in diameter and measures 1000 Hounsfield units in density. The downstream left ureter is decompressed. Peritoneum and bowel: There is a small hiatal hernia. Unenhanced bowel loops demonstrate normal wall thickness and caliber. There are scattered colonic diverticular outpouchings present. No mucosal thickening or pericolonic fat stranding to suggest acute diverticulitis. No free fluid or air. Nodes and vessels: No retroperitoneal or mesenteric adenopathy by size criteria. Aorta and inferior vena cava are normal in caliber. Dense atheromatous calcifications are present throughout the abdominal aorta. Miscellaneous: No ventral hernias. PELVIS: Genitourinary: Bladder wall thickness is normal. 2 calculi are visualized within the posterior right bladder adjacent to the right ureterovesicular junction. A 8 mm diameter calculus is layered within the dependent bladder. A Adames catheter is present. The bladder is decompressed. Miscellaneous: No inguinal adenopathy. There is a small fat-containing right inguinal hernia. Bones: No suspicious bony lesions. No vertebral body compression fractures. IMPRESSION: 1. Obstructive left ureterolithiasis with severe left hydronephrosis and extensive perinephric fat stranding. 2. Calculus within the distal right ureter without right hydronephrosis or hydroureter. 3. Multiple bladder calculi as above. 4. Diverticulosis. No acute diverticulitis. 5. Cholelithiasis. No findings to suggest acute cholecystitis or ch oledocholithiasis. 6. Dense aortic atherosclerosis. Departure - Departure Disposition: 02 Transfer Acute Care Hosp Clinical Impression: Bilateral ureteral calculi, Acute urinary retention Hydronephrosis Qualifiers: Hydronephrosis type: unspecified Qualified Code(s): N13.30 - Unspecified hydronephrosis UTI (urinary tract infection) Qualifiers: Urinary tract infection type: site unspecified Hematuria presence: without hematuria Qualified Code(s): N39.0 - Urinary tract infection, site not specified Condition: Stable
[2021-11-20 12:59] LABS: BASOPHILS % (AUTO) 0.3 %; EOSINOPHILS % (AUTO) 0.1 %; HCT - HEMATOCRIT 27.9 % (42.0-52.0); HGB - HEMOGLOBIN 8.7 g/dL (14.0-18.0); LYMPHOCYTES % (AUTO) 17.2 %; MEAN CORPUSCULAR HEMOGLOBIN 25.7 pg (27.0-31.0); MEAN CORPUSCULAR HGB CONC 31.2 g/dL (32.0-36.0); MEAN CORPUSCULAR VOLUME 82.5 fL (80.0-94.0); MEAN PLATELET VOLUME 9.4 fL (7.4-11.4); MONOCYTES # (AUTO) 1.1 10^3/uL (0.0-1.0); MONOCYTES % (AUTO) 9.8 %; NEUTROPHILS # (AUTO) 8.3 10^3/uL (1.5-6.6); NEUTROPHILS % (AUTO) 71.7 %; PLT - PLATELET COUNT 191 10^3/uL (130-450); RED BLOOD COUNT 3.38 10^6/uL (4.70-6.10); RED CELL DISTRIBUTION WIDTH 15.9 % (12.0-15.0); WHITE BLOOD COUNT 11.5 x10^3/uL (4.8-10.8)
[2021-11-20 13:13] LABS: ALBUMIN/GLOBULIN RATIO 0.7 (1.0-2.2); BILIRUBIN,TOTAL 1.1 mg/dL (0.2-1.0); CALCIUM 9.2 mg/dL (8.5-10.3); CREATININE 2.8 mg/dL (0.6-1.2); POTASSIUM 4.2 mmol/L (3.5-5.0); TOTAL PROTEIN 7.1 g/dL (6.7-8.2)
[2021-11-20 13:20] LABS: BILIRUBIN,URINE NEGATIVE (NEGATIVE); GLUCOSE, URINE (UA) NEGATIVE (NEGATIVE); KETONES,URINE (UA) NEGATIVE (NEGATIVE); LEUKOCYTE ESTERASE, URINE LARGE (NEGATIVE); NITRITE,URINE POSITIVE (NEGATIVE); OCCULT BLOOD,URINE MODERATE (NEGATIVE); PROTEIN,URINE 100 mg/dL (NEGATIVE); UROBILINOGEN,URINE 0.2 (NORMAL) E.U./dL (NORMAL)
[2021-11-20 13:22] LABS: CLARITY,URINE CLOUDY (CLEAR)
[2021-11-20] MEDS ORDERED: SODIUM CHLORIDE 0.9% 1,000 ML IV STA (13:29)
[2021-11-20 13:36] LABS: BACTERIA,URINE Many /HPF (None Seen); EPITHELIAL CELLS,UR FEW Renal Tubular /HPF (<= Few); SQUAMOUS EPITHELIAL CELL,UR FEW Squamous (<= Few); WBC CLUMPS,URINE PRESENT; WBC,URINE >25 /HPF (0-3)
[2021-11-20] MEDS ORDERED: cefTRIAXone 1 GM VIAL IVP STA (14:00)
--- NOTE | 2021-11-20 15:31 | CT Report ---
PROCEDURE: Abdomen/Pelvis WO INDICATIONS: UTI, ureteral stent TECHNIQUE: Noncontrast 5 mm thick sections acquired from the diaphragms to the symphysis. 5 mm coronal and sagi ttal reformats were then performed. For radiation dose reduction, the following was used: automated exposure control, adjustment of mA and/or kV according to patient size. COMPARISON: None. FINDINGS: Image quality: Excellent. ABDOMEN: Lung bases: Atelectasis is present at the right lung base. The heart is enlarged. No pericardial effu janey. Solid organs: Liver and spleen are normal in size. Multiple subcentimeter gallstones are layered in the gallbladder fundus. No gallbladder wall thickening or pericholecystic fluid. Pancreas is normal i n contours. No adrenal nodules. The right kidney is normal in size. No hydronephrosis or nephrolithiasis. The right ureter demonstrat es normal caliber. There is a 9 mm calculus within the distal right ureter which measures 700 Hounsfi eld units in density. The left kidney is enlarged. There is severe left hydronephrosis and marked left perinephric fat stra nding. An obstructive stone is present within the proximal left ureter which measures 1.[address] and measures 1000 Hounsfield units in density. The downstream left ureter is decompressed. Peritoneum and bowel: There is a small hiatal hernia. Unenhanced bowel loops demonstrate normal wall thickness and caliber. There are scattered colonic diverticular outpouchings present. No mucosal thic kening or pericolonic fat stranding to suggest acute diverticulitis. No free fluid or air. Nodes and vessels: No retroperitoneal or mesenteric adenopathy by size criteria. Aorta and inferior vena cava are normal in caliber. Dense atheromatous calcifications are present throughout the abdom inal aorta. Miscellaneous: No ventral hernias. PELVIS: Genitourinary: Bladder wall thickness is normal. 2 calculi are visualized within the posterior right bladder adjacent to the right ureterovesicular junction. A 8 mm diameter calculus is layered within the dependent bladder. A Adames catheter is present. The bladder is decompressed. Miscellaneous: No inguinal adenopathy. There is a small fat-containing right inguinal hernia. Bones: No suspicious bony lesions. No vertebral body compression fractures. IMPRESSION: 1. Obstructive left ureterolithiasis with severe left hydronephrosis and extensive perinephric fat st randing. 2. Calculus within the distal right ureter without right hydronephrosis or hydroureter. 3. Multiple bladder calculi as above. 4. Diverticulosis. No acute diverticulitis. 5. Cholelithiasis. No findings to suggest acute cholecystitis or choledocholithiasis. 6. Dense aortic atherosclerosis. Reviewed by: Ines Sherwood MD on 11/20/2021 3:30 PM PDT Approved by: Ines Sherwood MD on 11/20/2021 3:30 PM PDT Station ID: [id number]
[2021-11-21] MEDS ORDERED: SODIUM CHLORIDE 0.9% 1,000 ML IV STA (07:23)
[2021-11-21 07:48] LABS: BASOPHILS % (AUTO) 0.2 %; EOSINOPHILS % (AUTO) 0.1 %; LYMPHOCYTES # (AUTO) 2.6 10^3/uL (1.5-3.5); LYMPHOCYTES % (AUTO) 20.7 %; MEAN CORPUSCULAR HEMOGLOBIN 25.6 pg (27.0-31.0); MEAN CORPUSCULAR VOLUME 82.4 fL (80.0-94.0); MEAN PLATELET VOLUME 9.6 fL (7.4-11.4); MONOCYTES # (AUTO) 1.1 10^3/uL (0.0-1.0); MONOCYTES % (AUTO) 8.7 %; NEUTROPHILS # (AUTO) 8.6 10^3/uL (1.5-6.6); NEUTROPHILS % (AUTO) 69.7 %; PLT - PLATELET COUNT 189 10^3/uL (130-450); RED BLOOD COUNT 3.52 10^6/uL (4.70-6.10); RED CELL DISTRIBUTION WIDTH 16.2 % (12.0-15.0); WHITE BLOOD COUNT 12.3 x10^3/uL (4.8-10.8)
[2021-11-21 08:03] LABS: ALBUMIN/GLOBULIN RATIO 0.7 (1.0-2.2); CALCIUM 9.2 mg/dL (8.5-10.3); CREATININE 2.3 mg/dL (0.6-1.2); POTASSIUM 4.6 mmol/L (3.5-5.0); TOTAL PROTEIN 7.4 g/dL (6.7-8.2)
[2021-11-21] MEDS ORDERED: cefTRIAXone 1 GM VIAL IVP SCH (09:00)
[2021-11-21 12:10] VITALS: BP 139/118
--- NOTE | 2021-11-21 12:36 | ED Physician Documentation ---
ED Addendum - Addendum Addendum: 11/21/21 12:35 Patient is feeling much better today. We are continuing to look for an available bed in the region. There are no beds from [facility] through [place]. He is on several wait list. He is afebrile. He states that he feels better today.
--- NOTE | 2021-11-21 14:03 | ED Physician Documentation ---
ED Addendum - Addendum Addendum: 11/21/21 14:02 Discussed the case with Dr. Robb, urology at [facility] in [place] who graciously accepts in transfer. Discussed the case with Dr. Graves, hospitalist who also accepts in transfer. The patient will be transferred to [facility] in [place] for nephrostomy and further urological care. Patient is currently afebrile, normal vital signs. COBRA forms completed. This document was made in part using voice recognition software. While efforts are made to proofread this document, sound alike and grammatical errors may occur. Results - Vitals Vitals: Vital Signs - 24 hr 11/20/21 11/20/21 11/20/21 14:50 18:00 20:00 Temperature 37.3 C 37.2 C Heart Rate 85 58 L 53 L Respiratory 18 18 18 Rate Blood Pressure 113/69 119/102 H 102/55 L O2 Saturation 97 99 98 11/20/21 11/21/21 11/21/21 22:00 00:00 03:30 Temperature 37.3 C 36.8 C Heart Rate 57 L 92 54 L Respiratory 16 20 18 Rate Blood Pressure 102/60 134/82 H 166/88 H O2 Saturation 96 95 92 11/21/21 11/21/21 11/21/21 05:00 07:10 10:42 Temperature Heart Rate 56 L 58 L 54 L Respiratory 18 18 18 Rate Blood Pressure 134/53 H 145/62 H 72/63 L O2 Saturation 94 96 97 11/21/21 12:00 Temperature Heart Rate 60 Respiratory 17 Rate Blood Pressure 139/118 H O2 Saturation 95 Oxygen O2 Source Room air - Labs Labs: Microbiology 11/20/21 13:14 Urine Culture - Preliminary Urine,Random Laboratory Tests 11/20/21 11/20/21 11/20/21 12:55 12:55 13:14 WBC 11.5 H RBC 3.38 L Hgb 8.7 L Hct 27.9 L MCV 82.5 MCH 25.7 L MCHC 31.2 L RDW 15.9 H Plt Count 191 MPV 9.4 Neut # (Auto) 8.3 H Lymph # (Auto) 2.0 [place] # (Auto) 1.1 H Eos # (Auto) 0.0 Baso # (Auto) 0.0 Absolute Nucleated RBC 0.00 Nucleated RBC % 0.0 Sodium 136 Potassium 4.2 Chloride 103 Carbon Dioxide 25 Anion Gap 8.0 BUN 47 H Creatinine 2.8 H Estimated GFR (MDRD) 22 L Glucose 120 H Lactic Acid Calcium 9.2 Total Bilirubin 1.1 H AST 17 ALT 12 Alkaline Phosphatase 77 Total Protein 7.1 Albumin 3.0 L Globulin 4.1 Albumin/Globulin Ratio 0.7 L Lipase 50 Urine Color YELLOW Urine Clarity CLOUDY Urine pH 6.0 Ur Specific [place] 1.020 Urine Protein 100 H Urine Glucose (UA) NEGATIVE Urine Ketones NEGATIVE Urine Occult Blood MODERATE H Urine Nitrite POSITIVE H Urine Bilirubin NEGATIVE Urine Urobilinogen 0.2 (NORMAL) Ur Leukocyte Esterase LARGE H Urine RBC 6-10 H Urine WBC >25 H Urine WBC Clumps PRESENT Ur Epithelial Cells FEW Renal Tubular Ur Squamous Epith Cells FEW Squamous Urine Bacteria Many H Ur Microscopic Review INDICATED Urine Culture Comments INDICATED SARS-CoV-2 (PCR) 11/20/21 11/21/21 11/21/21 16:36 07:42 07:42 WBC 12.3 H RBC 3.52 L Hgb 9.0 L Hct 29.0 L MCV 82.4 MCH 25.6 L MCHC 31.0 L RDW 16.2 H Plt Count 189 MPV 9.6 Neut # (Auto) 8.6 H Lymph # (Auto) 2.6 [place] # (Auto) 1.1 H Eos # (Auto) 0.0 Baso # (Auto) 0.0 Absolute Nucleated RBC 0.00 Nucleated RBC % 0.0 Sodium 141 Potassium 4.6 Chloride 107 Carbon Dioxide 25 Anion Gap 9.0 BUN 45 H Creatinine 2.3 H Estimated GFR (MDRD) 27 L Glucose 115 H Lactic Acid Calcium 9.2 Total Bilirubin 1.0 AST 42 ALT 31 Alkaline Phosphatase 153 H Total Protein 7.4 Albumin 3.0 L Globulin 4.3 H Albumin/Globulin Ratio 0.7 L Lipase 42 Urine Color Urine Clarity Urine pH Ur Specific [place] Urine Protein Urine Glucose (UA) Urine Ketones Urine Occult Blood Urine Nitrite Urine Bilirubin Urine Urobilinogen Ur Leukocyte Esterase Urine RBC Urine WBC Urine WBC Clumps Ur Epithelial Cells Ur Squamous Epith Cells Urine Bacteria Ur Microscopic Review Urine Culture Comments SARS-CoV-2 (PCR) NOT DETECTED 11/21/21 07:42 WBC RBC Hgb Hct MCV MCH MCHC RDW Plt Count MPV Neut # (Auto) Lymph # (Auto) [place] # (Auto) Eos # (Auto) Baso # (Auto) Absolute Nucleated RBC Nucleated RBC % Sodium Potassium Chloride Carbon Dioxide Anion Gap BUN Creatinine Estimated GFR (MDRD) Glucose Lactic Acid 1.3 Calcium Total Bilirubin AST ALT Alkaline Phosphatase Total Protein Albumin Globulin Albumin/Globulin Ratio Lipase Urine Color Urine Clarity Urine pH Ur Specific [place] Urine Protein Urine Glucose (UA) Urine Ketones Urine Occult Blood Urine Nitrite Urine Bilirubin Urine Urobilinogen Ur Leukocyte Esterase Urine RBC Urine WBC Urine WBC Clumps Ur Epithelial Cells Ur Squamous Epith Cells Urine Bacteria Ur Microscopic Review Urine Culture Comments SARS-CoV-2 (PCR) Departure - Departure Disposition: 02 Transfer Acute Care Hosp Clinical Impression: Bilateral ureteral calculi, Acute urinary retention Hydronephrosis Qualifiers: Hydronephrosis type: unspecified Qualified Code(s): N13.30 - Unspecified hydronephrosis UTI (urinary tract infection) Qualifiers: Urinary tract infection type: site unspecified Hematuria presence: without hematuria Qualified Code(s): N39.0 - Urinary tract infection, site not specified Condition: Stable
== END 2021-11-21 15:49 | disposition short-term general hospital (02) ==
LOC: EDUNIT# → ED 12:37
DX: N13.30 Unspecified hydronephrosis (principal); N20.1 Calculus of ureter; N39.0 Urinary tract infection, site not specified; R33.9 Retention of urine, unspecified; Z95.0 Presence of cardiac pacemaker; F03.90 Unspecified dementia, unspecified severity, without behavioral disturbance, psychotic disturbance, mood disturbance, and anxiety; Z20.822 Contact with and (suspected) exposure to COVID-19
CPT/HCPCS: 36415; 51702; 80053; 81001; 81003; 83605; 83690; 85025; 87077; 87086; 87181; 99285